=== PATIENT | female | born 1960 | race Two or more races ===

== ENCOUNTER 2018-09-14 00:29 | Emergency (ER) | payer OTHER ==
[~2018-09-14] VITALS: Ht 165.1 cm; Wt 61.2 kg
[2018-09-14] MEDS ORDERED: LOSARTAN-HCTZ1 EAC1 (00:52)
[2018-09-14] MEDS ORDERED: MOBIC15 MG PO (06:57)
[2018-09-14] MEDS ORDERED: CORTISPORIN EAR10 M1 OPHT (06:57)
== END 2018-09-14 07:16 | disposition home or self-care (01) ==
LOC: ER 00:29 → CPU-OBS 00:31 → ER 00:31
DX: R07.89 Other chest pain (principal)
CPT/HCPCS: G0378; G0379; 93005

== ENCOUNTER 2019-12-24 07:35 | Outpatient (CLI) | payer OTHER ==
[~2019-12-24 07:35] MED LIST: CORTISPORIN EAR10 M1 OPHT; LOSARTAN-HCTZ1 EAC1; MOBIC15 MG PO
== END 2019-12-24 08:09 | disposition home or self-care (01) ==
LOC: NUCLEAR 07:35
PROVIDERS: ATTEND Internal Medicine Cardiovascular Disease
DX: R07.89 Other chest pain (principal)
CPT/HCPCS: A9500; 93017; 78452

== ENCOUNTER 2022-05-29 13:51 | Emergency (ER) | payer OTHER ==
[~2022-05-29] VITALS: Ht 160 cm; Wt 61.2 kg
== END 2022-05-29 18:56 | disposition home or self-care (01) ==
LOC: ER 13:51
DX: I10 Essential (primary) hypertension (principal)